=== PATIENT | male | born 1950 | race Caucasian/White ===

== ENCOUNTER → 2020-05-02 | Day surgery (SDC) | payer MEDICARE, OTHER ==
[~2020-05-02] MED LIST: ALPRAZOLAM0.5 MG PO; CATAPRES 0.1MG0.1 MG PO; COLACE100 MG PO; COREG 12.5MG12.5 MG PO; DAILY VALUE1 EACH PO; FOLIC ACID 1 MG1 MG PO; HYDROCHLOROTH12.5 M1 PO; LEVOTHYROXINE88 MCG PO; LISINOPRIL10 MG PO; LOPID TAB 600600 MG PO; PROTONIX40 MG PO; TESTOSTERON100 MG/ML IM; TRAMADOL-ACETA1 EACH PO; WARFARIN SODIUM5 MG PO
== END | disposition home or self-care (01) ==
LOC: OR 08:48
DX: K44.9 Diaphragmatic hernia without obstruction or gangrene (principal); I10 Essential (primary) hypertension; K21.9 Gastro-esophageal reflux disease without esophagitis; E78.00 Pure hypercholesterolemia, unspecified; Z95.2 Presence of prosthetic heart valve; Z79.899 Other long term (current) drug therapy
CPT/HCPCS: J2704; J7040

== ENCOUNTER → 2020-05-07 | Outpatient (CLI) | payer MEDICARE, OTHER | LOC: CT 14:19 | DX: R10.10 Upper abdominal pain, unspecified (principal); N28.1 Cyst of kidney, acquired; K76.0 Fatty (change of) liver, not elsewhere classified; K44.9 Diaphragmatic hernia without obstruction or gangrene | CPT/HCPCS: 36415; 74170; 82565; Q9967 ==